=== PATIENT | male | born 1975 | race Two or more races ===

== ENCOUNTER 2025-01-20 11:53 | Emergency (ER) | payer BC ==
[~2025-01-20] VITALS: Ht 373.4 cm; Wt 72.7 kg
[2025-01-20] MEDS: IBUPROFEN 600 MG TAB PO ONE (13:41)
--- NOTE | 2025-01-20 13:43 | ED.PDOC ---
HPI Comments A 48-[id number]-male with a past medical history of Diabetes presents to the emergency department with a chief complaint of LT hand laceration onset today (01/20/25) around 05:15. Patient states he was at work, LT hand got stuck on a metal machine, obtained laceration on Lt hand 3rd and 4th digit, is currently experiencing pain with a pulsing sensation. Patient took pain medication around 06:00, noticed slight improvement of symptoms. Prior to ED arrival, patient was seen at [facility] in [place] and was given Tetanus vaccine. No other symptoms or modifying factors present at this time. Denies previous surgeries to the hand Denies fever chills night sweats nausea vomiting Denies numbness/tingling radiating to arm Denies nausea vomiting Denies loss os sensation Chief Complaint: Laceration Time Seen by MD: 13:45 Primary Care Provider: SILVER Ayala Notes: Medications, Allergies Home Meds Active Scripts Naproxen (Naproxen) 500 Mg Tab, 500 MG PO BIDPC for 10 Days, #20 TAB 0 Refills Prov:HUNTER JARAMILLO NP 01/20/25 Information Source: Patient Mode of Arrival: Ambulatory Severity: Moderate Severity of Laceration: Controlled Bleeding Complexity: Simple Timing: Hours Prehospital treatment: Pain Meds Laceration Location: Hand, Digit #3, Digit #4 Mechanism: Metal Laceration Length (cm): 1 Skin Type: Linear Capillary Refill: < 3 seconds Tender: Moderate Past Medical History PAST MEDICAL HISTORY: DM Surgical History: Denies all surgeries Family History Family History: Reviewed,noncontributory to illness Social History Smoker: Non-Smoker Alcohol: Denies ETOH Use Drugs: Denies Drug Use Lives In: Home All Other Systems: Reviewed and Negative (PER HPI) Physical Exam General Appearance: No Apparent Distress, Normal HEENT: Normal ENT Inspection, Pharynx Normal, TMs Normal Neck: Full Range of Motion, Non-Tender, Normal, Normal Inspection Respiratory: Chest Non-Tender, Lungs Clear, No Accessory Muscle Use, No Respiratory Distress, Normal Breath Sounds Cardiovascular: No Edema, No JVD, No Murmur, No Gallop, Normal Peripheral Pulses, Regular Rate/Rhythm Breast Exam: Deferred Gastrointestinal: No Organomegaly, Non Tender, No Pulsatile Mass, Normal Bowel Sounds, Soft Genitalia: Deferred Pelvic: Deferred Rectal: Deferred Extremities: No calf tenderness, No pedal edema Musculoskeletal : Location: Left Extremity Location: Finger 3 (noticbale subungual hematoma to 3rd phalanx, with no damage or disruption to nailbed. 1 cm horizontal abrasion above roof of nail just distal to the DIP.), Finger 4 (subungual hematoma to 4th phalanax with no damage or disruption to nailbed. noticable ecchymosis to volar aspect of distal phalanx. 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 Was a procedure done?: Yes Sedation Sedation?: No Other Procedure Procedure Trephination Indication subungal hematoma Anesthetic none Prep cleanse with iodine Success yes Informed consent obtained: Yes Risks, benefits, and alternati: Yes Images 1 - 2 - Differential diagnosis Generic Laceration: Fracture, Abrasion/Contusion, Laceration, Avulsion X-Ray, Labs, Meds, VS Vital Signs Date Time Temp Pulse Resp B/P (MAP) Pulse Ox O2 Delivery O2 Flow Rate FiO2 01/20/25 13:20 64 21 100 Room Air 01/20/25 13:20 98.3 64 21 124/78 (93) 100 98.3 01/20/25 12:16 98.3 64 21 124/88 (100) 100 98.3 Current Medications Medications (Trade) Dose Ordered Sig/Harrison Route Start Time Stop Time Status Last Admin Ibuprofen (Motrin Tablet) 600 mg ONCE ONCE PO 01/20/25 13:30 01/20/25 13:31 DC 01/20/25 13:41 DIAGNOSTIC IMAGING Diagnostic Imaging Report : [id number] Signed PATIENT: CHENG HODGES ACCT: [id number] UNIT: [id number] : 10/17/1965 LOC: ER ROOM / BED: / AGE / SEX: 59 / M ADM STATUS: REG ER SERVICE [id number] ORDERING PHYSICIAN: HUNTER JARAMILLO NP PROCEDURE(s): LHAN - L HAND 3V XRAY REASON: r/o fracture 3rd and 4th distal phalanx ORDER NUMBER(s): [id number], ACCESSION NUMBER(s): [id number] EXAM: XY L HAND 3V XRAY CLINICAL INDICATION: r/o fracture 3rd and 4th distal phalanx TECHNIQUE: XY L HAND 3V XRAY Comparison: None FINDINGS/IMPRESSION: Nondisplaced avulsion fractures involving the distal tuft of the 4th distal phalanx and base of the 5th proximal phalanx. ATED BY: MILAD DE LA FUENTE MD DICTATED DATE/TIME: 01/20/25 1410 SIGNED BY: MILAD DE LA FUENTE MD X-Ray, Labs, Meds, VS Comment A 42-ksrx-ipw-male with a past medical history of Diabetes presents to the emergency department with a chief complaint of LT hand laceration onset today (01/20/25) around 05:15. Patient arrives alert and oriented, ABC's intact, afebrile, vital signs stable, saturating well in room air Diagnostic imaging ordered by me and results interpreted by radiology : L HAND 3V XRAY Patient was given: Ibuprofen 600 mg. Tolerated medications with no adverse reaction. On reevaluation, patient had symptomatic improvement. Patient is stable for discharge at this time. External notes reviewed. Test results and diagnostic imaging interpreted. All diagnostic findings, discharge care, education and instructions provided Follow-up with PCP in 2 to 3 days Patient verbalized understanding and agreed to treatment plan Vital signs stable, afebrile, no acute distress noted Patient ambulatory with strong steady gait Advised to return precautions for any new or worsening symptoms, return to ER immediately for re-evaluation Patient is aware that the purpose of this visit was for an acute medical emergency requiring emergent stabilization. Chronic conditions, including malignancies have not been ruled out. Patient is instructed to follow up with PCP as directed and discharge instructions for continued care and workup. If unable to arrange follow-up, patient is to return to the emergency department for reassessment. Patient (parent or legal guardian if applicable) was given verbal and written discharge instructions and acknowledges understanding. Additional MDM Review of External, Non-ED records: External records reviewed. Discussion with independent historian (EMS, family) history obtained from the patient/parents (if applicable) at bedside Chronic conditions affecting care: DM Social determinants of health affecting care: None Consideration of admission (observation or admission): I considered escalation of care to admission for this patient, however given the reassuring workup, the patient is safe for outpatient management. Time of 1ST Reevaluation: 14:15 Reevaluation 1ST: Improved Patient Education/Counseling: Diagnosis, Treatment, Need For Follow Up Family Education/Counseling: No Family Present Departure 1 Departure Time of Disposition: 14:46 Impression: Primary Impression: Phalanx, distal fracture of finger Qualified Codes: S62.665A - Nondisplaced fracture of distal phalanx of left ring finger, initial encounter for closed fracture Additional Impression: Fracture of phalanx of finger Qualified Codes: S62.667A - Nondisplaced fracture of distal phalanx of left little finger, initial encounter for closed fracture Disposition: 01 HOME / SELF CARE / HOMELESS Condition: Fair Referrals: RYANN DE LA FUENTE MD e-Prescriptions Naproxen (Naproxen) 500 Mg Tab 500 MG PO BIDPC for 10 Days, #20 TAB 0 Refills Prov: HUNTER JARAMILLO NP 01/20/25 Critical Care Note Critical Care Time?: No Stability Stability form required: No Heart Score Heart Score: Heart Score Response (Comments) Value History N/A 0 EKG N/A 0 Age N/A 0 Risk Factors N/A 0 Troponin N/A 0 Total 0 I personally scribed for HUNTER JARAMILLO SPECIAL EDUCATION DIRECTOR ([email or web address]) on 01/20/25 at 13:43. Electronically submitted by Alissa Chowdhury ([email or web address]). I personally scribed for HUNTER JARAMILLO SPECIAL EDUCATION DIRECTOR ([email or web address]) on 01/20/25 at 14:07. Electronically submitted by Alissa Chowdhury ([email or web address]). I personally scribed for HUNTER JARAMILLO SPECIAL EDUCATION DIRECTOR ([email or web address]) on 01/20/25 at 14:41. Electronically submitted by Alissa Chowdhury ([email or web address]). I personally scribed for HUNTER JARAMILLO SPECIAL EDUCATION DIRECTOR ([email or web address]) on 01/20/25 at 14:43. Electronically submitted by Alissa Chowdhury ([email or web address]). HUNTER JARAMILLO NP Jan 20, 2025 13:43
--- NOTE | 2025-01-20 14:12 | DVH ---
EXAM: XY L HAND 3V XRAY CLINICAL INDICATION: r/o fracture 3rd and 4th distal phalanx TECHNIQUE: XY L HAND 3V XRAY Comparison: None FINDINGS/IMPRESSION: Nondisplaced avulsion fractures involving the distal tuft of the 4th distal phalanx and base of the 5 th proximal phalanx.
[2025-01-20] MEDS ORDERED: NAPR-746 PO (14:47)
== END 2025-01-20 14:51 | disposition home or self-care (01) ==
LOC: EDUNIT# 11:53 → EDBD 11:53 → ER 11:53
DX: S62.665A Nondisplaced fracture of distal phalanx of left ring finger, initial encounter for closed fracture (principal); E11.9 Type 2 diabetes mellitus without complications; X58.XXXA Exposure to other specified factors, initial encounter; Y93.89 Activity, other specified; Y92.89 Other specified places as the place of occurrence of the external cause; Y99.0 Civilian activity done for income or pay
CPT/HCPCS: 11740; 73130